=== PATIENT | male | born 1955 | race African-American/Black ===

== ENCOUNTER 2016-08-26 07:41 | Inpatient (IN) | payer OTHER ==
[~2016-08-26] VITALS: Ht 182.9 cm; Wt 195.0 kg
[~2016-08-26 07:41] MED LIST: DILT360C27 PO; FURO-151 PO; GLIP10TA10 PO; Hydralazine Hcl PO; LOSA50TA20 PO; LOSA50TA3 PO; METF10002 PO; METFORMIN PO; OMEP20CA10 PO; PULM50 HHN; Potassium Chloride PO; RIVA20TA PO; Tramadol Hcl PO
[2016-08-26 08:24] LABS: EOSINOPHILS % 1.4 % (0.0-5.0); HEMATOCRIT. 37.9 % (42.0-52.0); HEMOGLOBIN. 12.1 g/dL (14.0-18.0); LYMPHOCYTES % 10.8 % (20.0-50.0); MEAN CORPUSCULAR HEMOGLOBIN 28.5 pg (28.0-32.0); MEAN CORPUSCULAR HGB CONC 31.9 g/dL (31.0-37.0); MEAN CORPUSCULAR VOLUME 89.3 fL (80.0-94.0); MEAN PLATELET VOLUME 7.2 fl (7.4-10.4); MONOCYTES % 6.1 % (2.0-8.0); NEUTROPHILS % 80.7 % (40.0-76.0); PLATELET 218 x1000/uL (130-400); RED BLOOD CELL COUNT 4.25 mill/uL (4.7-6.1); RED CELL DISTRIBUTION WIDTH 15.6 % (11.6-14.6); WHITE BLOOD COUNT 9.6 x1000/uL (4.5-11.0)
[2016-08-26 08:33] LABS: INR 1.3
[2016-08-26 08:38] LABS: CALCIUM 8.1 mg/dL (8.5-10.1)
[2016-08-26 08:41] LABS: TROPONIN I 0.03 ng/mL (0.00-0.04)
[2016-08-26 09:09] LABS: *AMPHETAMINES SCREEN URINE NEGATIVE (NEGATIVE); *BARBITURATES SCREEN URINE NEGATIVE (NEGATIVE); *BENZODIAZEPINES SCREEN URINE NEGATIVE (NEGATIVE); *COCAINE SCREEN URINE PRESUMTIVE POSITIVE (NEGATIVE); CANNABINOID URINE SCREEN NEGATIVE (NEGATIVE); ECSTASY MDMA SCREEN URINE NEGATIVE (NEGATIVE); METHADONE URINE SCREEN NEGATIVE (NEGATIVE); OPIATES URINE SCREEN NEGATIVE (NEGATIVE); PHENCYCLIDINE URINE SCREEN NEGATIVE (NEGATIVE)
[2016-08-26] MEDS ORDERED: FUROSEMIDE 40MG/4ML VIAL IVP ONE (11:45)
[2016-08-26] MEDS ORDERED: ONDANSETRON HCL 4MG/2ML VIAL IV PRN (12:45)
[2016-08-26] MEDS ORDERED: CLONIDINE 0.1MG TABLET PO PRN (12:45)
[2016-08-26] MEDS ORDERED: MAGNESIUM/ALUMINUM HYDROXIDE/SIMETHICONE 30ML UDC PO PRN (12:45)
[2016-08-26] MEDS ORDERED: DOCUSATE SODIUM 100MG CAPSULE PO PRN (12:45)
[2016-08-26 13:09] LABS: CALCIUM 8.4 mg/dL (8.5-10.1); MAGNESIUM 1.8 mg/dL (1.8-2.4)
[2016-08-26 14:01] LABS: CLARITY URINE CLEAR (CLEAR); COLOR URINE YELLOW (YELLOW); GLUCOSE URINE NEGATIVE (NEGATIVE); KETONES URINE NEGATIVE (NEGATIVE); LEUKOCYTE ESTERASE URINE TRACE (NEGATIVE); NITRITE URINE NEGATIVE (NEGATIVE); OCCULT BLOOD URINE NEGATIVE (NEGATIVE); PH URINE 5.5 (4.5-8.0); PROTEIN URINE NEGATIVE (NEGATIVE); SPECIFIC GRAVITY URINE 1.007 (1.005-1.030); UROBILINOGEN URINE 0.2 E.U./dL (0.2-1.0)
[2016-08-26 14:31] LABS: WBC URINE 0-2 /hpf (0-2)
[2016-08-26 14:32] LABS: BACTERIA URINE TRACE; RBC URINE NONE SEEN /hpf (0-2); SQUAMOUS EPITHELIAL CELL URINE RARE /lpf (RARE/1+)
[2016-08-26 15:03] VITALS: BP 143/102
[2016-08-26] MEDS ORDERED: DILTIAZEM HCL 5MG/ML 5ML VIAL IV NR (15:45)
[2016-08-26 16:27] LABS: CREATINE KINASE MB FRACTION 0.5 ng/mL (0.5-3.6); TROPONIN I 0.03 ng/mL (0.00-0.04)
[2016-08-26 16:30] VITALS: BP 143/102
[2016-08-26] MEDS: MAGNESIUM OXIDE 400MG TABLET PO SCH (16:56)
[2016-08-26] MEDS: RIVAROXABAN 20 MG TABLET PO SCH (16:56)
[2016-08-26] MEDS: DILTIAZEM HCL 125 MG in DEXT 5% WATER 100 ML IV SCH (17:22)
[2016-08-26 18:00] VITALS: BP 145/98
[2016-08-26] MEDS: FUROSEMIDE 40MG/4ML VIAL IVP SCH (18:30)
[2016-08-26] MEDS ORDERED: DEXTROSE 50% WATER 50ML SYRINGE IV PRN (19:45)
[2016-08-26 20:34] VITALS: BP 145/81
[2016-08-26] MEDS: BLOOD SUGAR DIAGNOSTIC STRIP TEST SCH (20:50)
[2016-08-26] MEDS: INSULIN LISPRO 100 UNITS/ML SUBCUT SCH (21:16)
[2016-08-26 22:01] VITALS: BP 139/57
[2016-08-26 23:53] LABS: CREATINE KINASE 68 IU/L (39-308); CREATINE KINASE MB FRACTION < 0.5 ng/mL (0.5-3.6); INDEX HEMOLYSI 1 (1-3); TROPONIN I 0.02 ng/mL (0.00-0.04)
[2016-08-27] VITALS (12 sets, daily range): BP systolic 93–163; BP diastolic 35–98
[2016-08-27] MEDS: BUDESONIDE 0.5MG/2ML NEB HHN SCH ×3 (01:04→20:56)
[2016-08-27] MEDS: IPRATROPIUM/ALBUTEROL 0.5-3(2.5)MG/3ML NEB INH PRN ×3 (01:05→20:57)
[2016-08-27] MEDS: FUROSEMIDE 40MG/4ML VIAL IVP SCH ×2 (05:51→18:56)
[2016-08-27 06:41] LABS: BASOPHILS % 0.6 % (0.0-2.0); EOSINOPHILS % 2.4 % (0.0-5.0); HEMATOCRIT. 39.2 % (42.0-52.0); HEMOGLOBIN. 12.6 g/dL (14.0-18.0); LYMPHOCYTES % 16.3 % (20.0-50.0); MEAN CORPUSCULAR HEMOGLOBIN 28.7 pg (28.0-32.0); MEAN CORPUSCULAR HGB CONC 32.2 g/dL (31.0-37.0); MEAN CORPUSCULAR VOLUME 89.1 fL (80.0-94.0); MEAN PLATELET VOLUME 7.7 fl (7.4-10.4); MONOCYTES % 7.8 % (2.0-8.0); NEUTROPHILS % 72.9 % (40.0-76.0); PLATELET 242 x1000/uL (130-400); RED CELL DISTRIBUTION WIDTH 15.3 % (11.6-14.6); WHITE BLOOD COUNT 7.5 x1000/uL (4.5-11.0)
[2016-08-27 06:45] LABS: ANION GAP 12; CALCIUM 8.3 mg/dL (8.5-10.1); CARBON DIOXIDE 33 mEq/L (21-32); CHLORIDE 99 mEq/L (98-107); INDEX HEMOLYSI 1 (1-3); INDEX ICTERIC 1 (1-4); INDEX LIPEMIC 1 (1-3); LDL CHOLESTEROL 51 mg/dL (5-100); TRIGLYCERIDE 75 mg/dL (0-150); UREA NITROGEN BLOOD 15 mg/dL (7-21); eGFR > 60 mL/min (>60)
[2016-08-27 06:51] LABS: HDL CHOLESTEROL 27 mg/dL (40-59); THYROID STIMULATING HORMONE 0.79 uIU/mL (0.36-3.74); TROPONIN I 0.02 ng/mL (0.00-0.04)
[2016-08-27] MEDS: BLOOD SUGAR DIAGNOSTIC STRIP TEST SCH ×4 (07:11→21:00)
[2016-08-27] MEDS: INSULIN LISPRO 100 UNITS/ML SUBCUT SCH ×4 (07:20→22:01)
[2016-08-27] MEDS: MAGNESIUM OXIDE 400MG TABLET PO SCH (08:07)
[2016-08-27] MEDS ORDERED: POTASSIUM CHLORIDE 20MEQ TABLET SR PO NR (10:00)
[2016-08-27] MEDS: GUAIFENESIN 200MG/10ML SUGAR FREE UDC PO PRN ×3 (10:50→23:22)
[2016-08-27] MEDS ORDERED: DILTIAZEM HCL 5MG/ML 5ML VIAL IV NR (13:30)
[2016-08-27] MEDS: DILTIAZEM HCL 125 MG in DEXT 5% WATER 100 ML IV SCH (14:19)
[2016-08-27] MEDS: RIVAROXABAN 20 MG TABLET PO SCH (18:55)
[2016-08-27] MEDS: GLIPIZIDE 10MG TABLET PO SCH (18:55)
[2016-08-28] VITALS (18 sets, daily range): BP systolic 92–143; BP diastolic 43–87
[2016-08-28] MEDS: BLOOD SUGAR DIAGNOSTIC STRIP TEST SCH ×4 (06:41→20:52)
[2016-08-28] MEDS: GLIPIZIDE 10MG TABLET PO SCH ×2 (06:43→16:38)
[2016-08-28] MEDS: FUROSEMIDE 40MG/4ML VIAL IVP SCH ×2 (06:43→17:57)
[2016-08-28] MEDS: OMEPRAZOLE 20MG CAPSULE EXTENDED RELEASE PO SCH (06:43)
[2016-08-28] MEDS: INSULIN LISPRO 100 UNITS/ML SUBCUT SCH ×4 (06:44→21:07)
[2016-08-28] MEDS: GUAIFENESIN 200MG/10ML SUGAR FREE UDC PO PRN ×3 (08:26→20:20)
[2016-08-28] MEDS: LOSARTAN POTASSIUM 50 MG TABLET PO SCH (08:26)
[2016-08-28] MEDS: MAGNESIUM OXIDE 400MG TABLET PO SCH (08:27)
[2016-08-28] MEDS: ACETAMINOPHEN 325MG TABLET PO PRN ×2 (08:32→16:52)
[2016-08-28] MEDS: IPRATROPIUM/ALBUTEROL 0.5-3(2.5)MG/3ML NEB INH PRN ×3 (09:22→16:37)
[2016-08-28] MEDS: BUDESONIDE 0.5MG/2ML NEB HHN SCH ×2 (09:22→22:27)
[2016-08-28] MEDS: AMIODARONE HCL 200 MG TABLET PO SCH ×2 (12:53→21:06)
[2016-08-28] MEDS: DILTIAZEM HCL 125 MG in DEXT 5% WATER 100 ML IV SCH (16:37)
[2016-08-28] MEDS: RIVAROXABAN 20 MG TABLET PO SCH (16:52)
[2016-08-28] MEDS: GUAIFENESIN 600MG ER TABLET PO SCH (20:19)
[2016-08-29] VITALS (15 sets, daily range): BP systolic 103–141; BP diastolic 52–85
[2016-08-29] MEDS: GUAIFENESIN 200MG/10ML SUGAR FREE UDC PO PRN ×3 (02:06→23:09)
[2016-08-29] MEDS: DILTIAZEM HCL 125 MG in DEXT 5% WATER 100 ML IV SCH ×3 (02:07→17:26)
[2016-08-29] MEDS: GLIPIZIDE 10MG TABLET PO SCH ×2 (05:54→16:29)
[2016-08-29] MEDS: FUROSEMIDE 40MG/4ML VIAL IVP SCH ×2 (05:54→17:27)
[2016-08-29] MEDS: AMIODARONE HCL 200 MG TABLET PO SCH ×3 (05:54→21:54)
[2016-08-29] MEDS: OMEPRAZOLE 20MG CAPSULE EXTENDED RELEASE PO SCH (05:54)
[2016-08-29] MEDS: BLOOD SUGAR DIAGNOSTIC STRIP TEST SCH ×4 (05:55→21:56)
[2016-08-29] MEDS: INSULIN LISPRO 100 UNITS/ML SUBCUT SCH ×4 (06:03→22:00)
[2016-08-29] MEDS: ACETAMINOPHEN 325MG TABLET PO PRN ×2 (07:42→21:53)
[2016-08-29] MEDS: BUDESONIDE 0.5MG/2ML NEB HHN SCH ×2 (08:25→21:03)
[2016-08-29] MEDS: MAGNESIUM OXIDE 400MG TABLET PO SCH (08:27)
[2016-08-29] MEDS: LOSARTAN POTASSIUM 50 MG TABLET PO SCH (08:27)
[2016-08-29] MEDS: GUAIFENESIN 600MG ER TABLET PO SCH ×2 (08:27→21:53)
[2016-08-29 08:51] LABS: BASOPHILS % 0.6 % (0.0-2.0); EOSINOPHILS % 5.3 % (0.0-5.0); HEMATOCRIT. 42.4 % (42.0-52.0); HEMOGLOBIN. 13.8 g/dL (14.0-18.0); LYMPHOCYTES % 16.6 % (20.0-50.0); MEAN CORPUSCULAR HEMOGLOBIN 28.4 pg (28.0-32.0); MEAN CORPUSCULAR HGB CONC 32.6 g/dL (31.0-37.0); MEAN CORPUSCULAR VOLUME 87.3 fL (80.0-94.0); MEAN PLATELET VOLUME 7.3 fl (7.4-10.4); MONOCYTES % 13.6 % (2.0-8.0); NEUTROPHILS % 63.9 % (40.0-76.0); PLATELET 251 x1000/uL (130-400); RED BLOOD CELL COUNT 4.86 mill/uL (4.7-6.1); RED CELL DISTRIBUTION WIDTH 15.5 % (11.6-14.6)
[2016-08-29 09:38] LABS: CALCIUM 8.3 mg/dL (8.5-10.1)
[2016-08-29] MEDS ORDERED: LEVAQUIN XX SCH (15:15)
[2016-08-29] MEDS ORDERED: AZITHROMYCIN 500 MG in DEXT 5% WATER 250 ML IV SCH (16:00)
[2016-08-29] MEDS: RIVAROXABAN 20 MG TABLET PO SCH (16:40)
[2016-08-29] MEDS ORDERED: LEVOFLOXACIN 750MG PREMIX 150 ML IV SCH (17:00)
[2016-08-29] MEDS: INSULIN DETEMIR UD 100 UNITS/ML SYR SUBCUT SCH (22:00)
[2016-08-30 00:12] VITALS: BP 105/68
[2016-08-30 02:03] VITALS: BP 109/73
[2016-08-30] MEDS: GUAIFENESIN 200MG/10ML SUGAR FREE UDC PO PRN ×2 (03:00→08:45)
[2016-08-30] MEDS: DILTIAZEM HCL 125 MG in DEXT 5% WATER 100 ML IV SCH ×2 (03:16→09:43)
[2016-08-30 04:33] VITALS: BP 152/56
[2016-08-30 05:39] VITALS: BP 99/34
[2016-08-30] MEDS: BLOOD SUGAR DIAGNOSTIC STRIP TEST SCH (06:35)
[2016-08-30] MEDS: GLIPIZIDE 10MG TABLET PO SCH (06:43)
[2016-08-30] MEDS: FUROSEMIDE 40MG/4ML VIAL IVP SCH (06:43)
[2016-08-30] MEDS: AMIODARONE HCL 200 MG TABLET PO SCH (06:43)
[2016-08-30] MEDS: INSULIN LISPRO 100 UNITS/ML SUBCUT SCH (07:31)
[2016-08-30 07:35] VITALS: BP 136/86
[2016-08-30 07:38] LABS: BASOPHILS % 0.6 % (0.0-2.0); EOSINOPHILS % 3.5 % (0.0-5.0); HEMATOCRIT. 41.9 % (42.0-52.0); HEMOGLOBIN. 13.3 g/dL (14.0-18.0); LYMPHOCYTES % 13.4 % (20.0-50.0); MEAN CORPUSCULAR HEMOGLOBIN 28.3 pg (28.0-32.0); MEAN CORPUSCULAR HGB CONC 31.8 g/dL (31.0-37.0); MEAN CORPUSCULAR VOLUME 88.9 fL (80.0-94.0); MEAN PLATELET VOLUME 7.3 fl (7.4-10.4); MONOCYTES % 12.1 % (2.0-8.0); NEUTROPHILS % 70.4 % (40.0-76.0); PLATELET 247 x1000/uL (130-400); RED BLOOD CELL COUNT 4.71 mill/uL (4.7-6.1); RED CELL DISTRIBUTION WIDTH 15.8 % (11.6-14.6); WHITE BLOOD COUNT 7.4 x1000/uL (4.5-11.0)
[2016-08-30 07:50] LABS: CALCIUM 7.7 mg/dL (8.5-10.1)
[2016-08-30] MEDS: IPRATROPIUM/ALBUTEROL 0.5-3(2.5)MG/3ML NEB INH PRN (08:09)
[2016-08-30] MEDS: BUDESONIDE 0.5MG/2ML NEB HHN SCH (08:09)
[2016-08-30] MEDS: GUAIFENESIN 600MG ER TABLET PO SCH (08:34)
[2016-08-30] MEDS: MAGNESIUM OXIDE 400MG TABLET PO SCH (08:34)
[2016-08-30] MEDS: LOSARTAN POTASSIUM 50 MG TABLET PO SCH (08:34)
[2016-08-30] MEDS ORDERED: FAMOTIDINE 20MG TABLET PO SCH (09:00)
[2016-08-30] MEDS: INSULIN DETEMIR UD 100 UNITS/ML SYR SUBCUT SCH (10:00)
== END 2016-08-30 09:40 | disposition left against medical advice (07) | DRG 682 ==
LOC: ER 07:44 → 3WST 10:00
PROVIDERS: ADMIT Internal Medicine; ATTEND Internal Medicine
DX: N17.9 Acute kidney failure, unspecified (principal); J96.22 Acute and chronic respiratory failure with hypercapnia; J96.21 Acute and chronic respiratory failure with hypoxia; I50.33 Acute on chronic diastolic (congestive) heart failure; I13.0 Hypertensive heart and chronic kidney disease with heart failure and stage 1 through stage 4 chronic kidney disease, or unspecified chronic kidney disease; J44.1 Chronic obstructive pulmonary disease with (acute) exacerbation; I48.4 Atypical atrial flutter; E46 Unspecified protein-calorie malnutrition; Z68.43 Body mass index [BMI] 50.0-59.9, adult; E66.2 Morbid (severe) obesity with alveolar hypoventilation; D64.9 Anemia, unspecified; E11.22 Type 2 diabetes mellitus with diabetic chronic kidney disease; N18.9 Chronic kidney disease, unspecified; I48.91 Unspecified atrial fibrillation; I27.2 Other secondary pulmonary hypertension; G47.33 Obstructive sleep apnea (adult) (pediatric); F14.10 Cocaine abuse, uncomplicated; E66.09 Other obesity due to excess calories; E11.21 Type 2 diabetes mellitus with diabetic nephropathy; Z53.21 Procedure and treatment not carried out due to patient leaving prior to being seen by health care provider; E87.6 Hypokalemia; I08.1 Rheumatic disorders of both mitral and tricuspid valves; Z79.01 Long term (current) use of anticoagulants; Z87.891 Personal history of nicotine dependence; Z88.0 Allergy status to penicillin; Z91.041 Radiographic dye allergy status; Z98.890 Other specified postprocedural states; Z79.4 Long term (current) use of insulin
CPT/HCPCS: 36415; 71010; 80048; 80061; 80305; 81001; 82550; 82553; 82962; 83735; 83880; 84443; 84484; 85025; 85610; 87070; 87077; 93005; 93970; 96374; 99285; C1893; J0456; J1815; J1940; J1956; J3490; J7040; J7050; J7060; J7620; J7626

== ENCOUNTER 2017-03-16 12:10 | Inpatient (IN) | payer OTHER ==
[~2017-03-16] VITALS: Ht 205.7 cm; Wt 200.0 kg
[2017-03-16] MEDS ORDERED: ALBUTEROL (0.083%) 2.5MG/3ML NEB HHN STA (12:15)
[2017-03-16] MEDS ORDERED: IPRATROPIUM BROMIDE (0.02%) 0.5MG/2.5ML NEB HHN STA (12:15)
[2017-03-16] MEDS ORDERED: FUROSEMIDE 40MG/4ML VIAL IVP ONE (12:15)
[2017-03-16 12:50] LABS: BASOPHILS % 0.8 % (0.0-2.0); EOSINOPHILS % 1.6 % (0.0-5.0); HEMATOCRIT. 42.6 % (42.0-52.0); MEAN CORPUSCULAR HEMOGLOBIN 29.8 pg (28.0-32.0); MEAN CORPUSCULAR VOLUME 90.5 fL (80.0-94.0); MEAN PLATELET VOLUME 7.8 fl (7.4-10.4); MONOCYTES % 5.8 % (2.0-8.0); NEUTROPHILS % 74.8 % (40.0-76.0); PLATELET 188 x1000/uL (130-400); RED BLOOD CELL COUNT 4.71 mill/uL (4.7-6.1); RED CELL DISTRIBUTION WIDTH 13.4 % (11.6-14.6)
[2017-03-16 12:56] LABS: INR 1.1; PARTIAL THROMBOPLASTIN TIME 29.2 sec (23.4-31.0); PROTHROMBIN TIME 11.8 sec (9.4-11.6)
[2017-03-16 12:59] LABS: CARBON DIOXIDE 29 mEq/L (21-32); CHLORIDE 100 mEq/L (98-107)
[2017-03-16] MEDS ORDERED: NITROGLYCERIN OINT 1GM/INCH UDPKT TD ONE (13:00)
[2017-03-16 13:04] LABS: TROPONIN I < 0.02 ng/mL (0.00-0.04)
[2017-03-16] MEDS ORDERED: LEVOFLOXACIN 750MG PREMIX 150 ML IV ONE (13:15)
[2017-03-16] MEDS ORDERED: DILTIAZEM HCL 5MG/ML 5ML VIAL IV PRN (13:45)
[2017-03-16] MEDS ORDERED: IPRATROPIUM BROMIDE (0.02%) 0.5MG/2.5ML NEB HHN PRN (15:00)
[2017-03-16] MEDS ORDERED: POTASSIUM CHLORIDE 20MEQ TABLET SR PO ONE (15:45)
[2017-03-16] MEDS ORDERED: DILTIAZEM HCL 125 MG in DEXT 5% WATER 100 ML IV PRN (16:00)
[2017-03-16] MEDS: DILTIAZEM HCL 125 MG in DEXT 5% WATER 100 ML IV PRN (16:18)
[2017-03-16 16:32] LABS: BG BASE EXCESS 5.4 mmol/L (-2.0-2.0); BG CARBOXYHEMOGLOBIN 1.1 % (0.5-1.5); BG DEOXYHEMOGLOBIN 11.3 % (0.0-5.0); BG FRACTION INSPIRED OXYGEN 32; BG HCO3 ACT 29.7 mmol/L (22.0-26.0); BG METHEMOGLOBIN 0.4 % (0.0-1.5); BG OXYGEN SATURATION 88.5 % (92.0-98.5); BG OXYHEMOGLOBIN 87.2 % (94.0-97.0); BG PCO2 41.8 mmHg (35.0-45.0); BG PH 7.469 (7.350-7.450); BG PO2 52.2 mmHg (75.0-100.0); BG SAMPLE SITE RIGHT RADIAL; BG TOTAL HEMOGLOBIN 14.8 g/dL (12.0-18.0); BG VENT MODE NASAL CANNULA
[2017-03-16] MEDS ORDERED: ZOLPIDEM TARTRATE 5MG TABLET PO PRN (21:00)
[2017-03-16] MEDS: POTASSIUM CHLORIDE 20MEQ TABLET SR PO SCH (21:03)
[2017-03-16] MEDS: FUROSEMIDE 100MG/10ML VIAL IVP SCH (21:03)
[2017-03-16] MEDS: RIVAROXABAN 20 MG TABLET PO SCH (21:04)
[2017-03-16] MEDS: METHYLPREDNISOLONE SOD SUCC 125 MG/2 ML VIAL IV SCH (21:07)
[2017-03-16] MEDS: IPRATROPIUM BROMIDE (0.02%) 0.5MG/2.5ML NEB HHN SCH (21:11)
[2017-03-16] MEDS: BUDESONIDE 0.5MG/2ML NEB HHN SCH (21:11)
[2017-03-16] MEDS ORDERED: CLONIDINE 0.1MG TABLET PO PRN (21:15)
[2017-03-16] MEDS ORDERED: ACETAMINOPHEN 325MG TABLET PO PRN (21:15)
[2017-03-16] MEDS ORDERED: ONDANSETRON HCL 4MG/2ML VIAL IV PRN (21:15)
[2017-03-16] MEDS ORDERED: DOCUSATE SODIUM 100MG CAPSULE PO PRN (21:15)
[2017-03-16] MEDS ORDERED: MAGNESIUM/ALUMINUM HYDROXIDE/SIMETHICONE 30ML UDC PO PRN (21:15)
[2017-03-16] MEDS ORDERED: ENOXAPARIN 40MG/0.4ML SYR SUBCUT SCH (21:15)
[2017-03-16 22:00] VITALS: BP 150/75
[2017-03-16] MEDS: DILTIAZEM HCL 60MG TABLET PO SCH (23:07)
[2017-03-16] MEDS: HYDRALAZINE HCL 25MG TABLET PO SCH (23:08)
[2017-03-17] VITALS (34 sets, daily range): BP systolic 70–162; BP diastolic 41–89
[2017-03-17 00:19] LABS: CLARITY URINE CLEAR (CLEAR); COLOR URINE YELLOW (YELLOW); GLUCOSE URINE NEGATIVE (NEGATIVE); KETONES URINE NEGATIVE (NEGATIVE); LEUKOCYTE ESTERASE URINE TRACE (NEGATIVE); NITRITE URINE NEGATIVE (NEGATIVE); OCCULT BLOOD URINE NEGATIVE (NEGATIVE); PH URINE 5.5 (4.5-8.0); PROTEIN URINE NEGATIVE (NEGATIVE)
[2017-03-17 00:50] LABS: *AMPHETAMINES SCREEN URINE NEGATIVE (NEGATIVE); *BARBITURATES SCREEN URINE NEGATIVE (NEGATIVE); *BENZODIAZEPINES SCREEN URINE NEGATIVE (NEGATIVE); *COCAINE SCREEN URINE PRESUMTIVE POSITIVE (NEGATIVE); CANNABINOID URINE SCREEN NEGATIVE (NEGATIVE); METHADONE URINE SCREEN NEGATIVE (NEGATIVE); OPIATES URINE SCREEN NEGATIVE (NEGATIVE); PHENCYCLIDINE URINE SCREEN NEGATIVE (NEGATIVE)
[2017-03-17] MEDS: IPRATROPIUM BROMIDE (0.02%) 0.5MG/2.5ML NEB HHN SCH ×6 (01:06→20:21)
[2017-03-17] MEDS: METHYLPREDNISOLONE SOD SUCC 125 MG/2 ML VIAL IV SCH ×3 (06:09→21:45)
[2017-03-17] MEDS: DILTIAZEM HCL 60MG TABLET PO SCH ×3 (06:10→21:48)
[2017-03-17] MEDS: HYDRALAZINE HCL 25MG TABLET PO SCH ×3 (06:10→21:46)
[2017-03-17 06:51] LABS: HEMATOCRIT. 41.7 % (42.0-52.0); HEMOGLOBIN. 13.9 g/dL (14.0-18.0); MEAN CORPUSCULAR HEMOGLOBIN 29.9 pg (28.0-32.0); MEAN CORPUSCULAR VOLUME 89.5 fL (80.0-94.0); PLATELET 186 x1000/uL (130-400); RED BLOOD CELL COUNT 4.66 mill/uL (4.7-6.1); RED CELL DISTRIBUTION WIDTH 13.3 % (11.6-14.6)
[2017-03-17 07:41] LABS: CHLORIDE 97 mEq/L (98-107)
[2017-03-17 07:50] LABS: CARBON DIOXIDE 31 mEq/L (21-32); TROPONIN I < 0.02 ng/mL (0.00-0.04)
[2017-03-17] MEDS: BUDESONIDE 0.5MG/2ML NEB HHN SCH ×2 (08:20→20:21)
[2017-03-17] MEDS: OMEPRAZOLE 20MG CAPSULE EXTENDED RELEASE PO SCH (08:43)
[2017-03-17] MEDS: LOSARTAN POTASSIUM 50 MG TABLET PO SCH (08:43)
[2017-03-17] MEDS: POTASSIUM CHLORIDE 20MEQ TABLET SR PO SCH (08:43)
[2017-03-17] MEDS: FUROSEMIDE 100MG/10ML VIAL IVP SCH ×2 (08:43→17:07)
[2017-03-17] MEDS ORDERED: PANTOPRAZOLE SODIUM 40 MG/VIAL IV SCH (09:00)
[2017-03-17] MEDS ORDERED: MAGNESIUM 2 G PREMIX 50 ML IV ONE (10:15)
[2017-03-17] MEDS ORDERED: MAGNESIUM 2 G PREMIX 50 ML IV NR ×2 (11:00→13:00)
[2017-03-17] MEDS ORDERED: DEXTROSE 50% WATER 50ML SYRINGE IV PRN (11:15)
[2017-03-17] MEDS ORDERED: INSULIN DETEMIR UD 100 UNITS/ML SYR SUBCUT SCH (12:00)
[2017-03-17] MEDS: BLOOD SUGAR DIAGNOSTIC STRIP TEST SCH ×3 (12:45→21:45)
[2017-03-17] MEDS: INSULIN LISPRO 100 UNITS/ML SUBCUT SCH ×3 (13:07→21:45)
[2017-03-17] MEDS: DILTIAZEM HCL 125 MG in DEXT 5% WATER 100 ML IV PRN (13:35)
[2017-03-17] MEDS: RIVAROXABAN 20 MG TABLET PO SCH (17:07)
[2017-03-17 18:06] LABS: PLATELET ESTIMATE NORMAL
[2017-03-18] VITALS (17 sets, daily range): BP systolic 109–179; BP diastolic 59–128
[2017-03-18] MEDS: IPRATROPIUM BROMIDE (0.02%) 0.5MG/2.5ML NEB HHN SCH ×6 (00:52→20:03)
[2017-03-18] MEDS: METHYLPREDNISOLONE SOD SUCC 125 MG/2 ML VIAL IV SCH ×3 (05:54→21:00)
[2017-03-18] MEDS: DILTIAZEM HCL 60MG TABLET PO SCH ×4 (05:54→23:09)
[2017-03-18] MEDS: HYDRALAZINE HCL 25MG TABLET PO SCH ×3 (05:54→22:00)
[2017-03-18 06:33] LABS: HEMATOCRIT. 44.8 % (42.0-52.0); HEMOGLOBIN. 14.6 g/dL (14.0-18.0); MEAN CORPUSCULAR HEMOGLOBIN 29.4 pg (28.0-32.0); MEAN CORPUSCULAR VOLUME 90.2 fL (80.0-94.0); MEAN PLATELET VOLUME 8.2 fl (7.4-10.4); PLATELET 209 x1000/uL (130-400); RED BLOOD CELL COUNT 4.97 mill/uL (4.7-6.1); RED CELL DISTRIBUTION WIDTH 13.5 % (11.6-14.6)
[2017-03-18] MEDS: DILTIAZEM HCL 125 MG in DEXT 5% WATER 100 ML IV PRN (06:33)
[2017-03-18 07:38] LABS: CARBON DIOXIDE 29 mEq/L (21-32); CHLORIDE 94 mEq/L (98-107)
[2017-03-18] MEDS: BLOOD SUGAR DIAGNOSTIC STRIP TEST SCH ×4 (08:11→21:00)
[2017-03-18] MEDS: POTASSIUM CHLORIDE 20MEQ TABLET SR PO SCH (08:27)
[2017-03-18] MEDS: LOSARTAN POTASSIUM 50 MG TABLET PO SCH (08:27)
[2017-03-18] MEDS: FUROSEMIDE 100MG/10ML VIAL IVP SCH (08:31)
[2017-03-18] MEDS: INSULIN LISPRO 100 UNITS/ML SUBCUT SCH ×4 (08:33→21:00)
[2017-03-18] MEDS ORDERED: MAGNESIUM 1 G PREMIX 100 ML IV SCH (09:00)
[2017-03-18] MEDS: OMEPRAZOLE 20MG CAPSULE EXTENDED RELEASE PO SCH (09:08)
[2017-03-18] MEDS: BUDESONIDE 0.5MG/2ML NEB HHN SCH ×2 (09:42→20:03)
[2017-03-18] MEDS ORDERED: INSULIN DETEMIR UD 100 UNITS/ML SYR SUBCUT SCH (10:00)
[2017-03-18] MEDS ORDERED: DIGOXIN 500MCG/2ML AMP IV SCH (11:30)
[2017-03-18] MEDS ORDERED: LIDOCAINE HCL 1% 20ML VIAL (Pyxis) INJ ONE ×2 (13:57→14:54)
[2017-03-18] MEDS ORDERED: DEXTROSE 50% WATER 50ML SYRINGE IV PRN (15:00)
[2017-03-18 15:51] LABS: PLATELET ESTIMATE NORMAL
[2017-03-18] MEDS ORDERED: INSULIN REGULAR (HUMULIN R) UD 100 UNITS/ML SYR SUBCUT NR (16:30)
[2017-03-18] MEDS: RIVAROXABAN 20 MG TABLET PO SCH (17:03)
[2017-03-18] MEDS ORDERED: BLOOD SUGAR DIAGNOSTIC STRIP TEST SCH (17:30)
[2017-03-18] MEDS: INSULIN DETEMIR UD 100 UNITS/ML SYR SUBCUT SCH (22:00)
[2017-03-19] VITALS (9 sets, daily range): BP systolic 125–164; BP diastolic 64–88
[2017-03-19] MEDS: IPRATROPIUM BROMIDE (0.02%) 0.5MG/2.5ML NEB HHN SCH ×5 (00:05→20:37)
[2017-03-19] MEDS: BLOOD SUGAR DIAGNOSTIC STRIP TEST SCH ×4 (07:30→21:27)
[2017-03-19] MEDS: POTASSIUM CHLORIDE 20MEQ TABLET SR PO SCH (09:30)
[2017-03-19] MEDS: LOSARTAN POTASSIUM 50 MG TABLET PO SCH (09:30)
[2017-03-19] MEDS: OMEPRAZOLE 20MG CAPSULE EXTENDED RELEASE PO SCH (09:30)
[2017-03-19] MEDS: METHYLPREDNISOLONE SOD SUCC 125 MG/2 ML VIAL IV SCH (09:30)
[2017-03-19] MEDS: INSULIN LISPRO 100 UNITS/ML SUBCUT SCH ×7 (09:32→21:29)
[2017-03-19] MEDS ORDERED: DIGOXIN 500MCG/2ML AMP IV NR ×3 (11:30→23:30)
[2017-03-19] MEDS: BUDESONIDE 0.5MG/2ML NEB HHN SCH ×2 (11:37→20:37)
[2017-03-19] MEDS: INSULIN DETEMIR UD 100 UNITS/ML SYR SUBCUT SCH ×2 (11:51→21:29)
[2017-03-19] MEDS ORDERED: FUROSEMIDE 40MG/4ML VIAL IVP SCH (12:00)
[2017-03-19] MEDS: DILTIAZEM HCL 60MG TABLET PO SCH ×2 (13:18→17:48)
[2017-03-19] MEDS: HYDRALAZINE HCL 25MG TABLET PO SCH ×2 (13:27→21:26)
[2017-03-19] MEDS ORDERED: DEXTROSE 50% WATER 50ML SYRINGE IV PRN (14:30)
[2017-03-19 15:28] LABS: CARBON DIOXIDE 27 mEq/L (21-32); CHLORIDE 97 mEq/L (98-107)
[2017-03-19 15:29] LABS: HEMATOCRIT 43.5 % (42.0-52.0); HEMOGLOBIN 14.4 g/dL (14.0-18.0); MEAN CORPUSCULAR VOLUME 91.1 fL (80.0-94.0); PLATELET 193 x1000/uL (130-400); RED BLOOD CELL COUNT 4.78 mill/uL (4.7-6.1); RED CELL DISTRIBUTION WIDTH 13.3 % (11.6-14.6)
[2017-03-19] MEDS ORDERED: PREDNISONE 20MG TABLET PO SCH (17:00)
[2017-03-19] MEDS: RIVAROXABAN 20 MG TABLET PO SCH (17:47)
[2017-03-20] VITALS: BP 170/93
[2017-03-20] MEDS: DILTIAZEM HCL 60MG TABLET PO SCH (00:22)
[2017-03-20] MEDS: IPRATROPIUM BROMIDE (0.02%) 0.5MG/2.5ML NEB HHN SCH (00:35)
[2017-03-20] MEDS ORDERED: DIGOXIN 125MCG TABLET PO SCH (18:00)
== END 2017-03-20 05:35 | disposition short-term general hospital (02) | DRG 291 ==
LOC: EDBEDREQ 13:14 → EDBEDREQTM 13:14 → ER 14:03 → 5EST 16:00 → ENRESERV 16:39 → CANBEDREQ 19:37 → SUPCPDRO 19:55
PROVIDERS: ADMIT Family Medicine Adult Medicine; ATTEND Family Medicine Adult Medicine
PROC: 02HV33Z Insertion of Infusion Device into Superior Vena Cava, Percutaneous Approach (ICD-10-PCS; principal; 2017-03-18)
PROC: B548ZZA Ultrasonography of Superior Vena Cava, Guidance (ICD-10-PCS; 2017-03-18)
DX: I11.0 Hypertensive heart disease with heart failure (principal); J96.21 Acute and chronic respiratory failure with hypoxia; J44.1 Chronic obstructive pulmonary disease with (acute) exacerbation; I48.92 Unspecified atrial flutter; Z68.42 Body mass index [BMI] 45.0-49.9, adult; I50.33 Acute on chronic diastolic (congestive) heart failure; E66.01 Morbid (severe) obesity due to excess calories; E11.9 Type 2 diabetes mellitus without complications; E83.42 Hypomagnesemia; E87.6 Hypokalemia; G47.33 Obstructive sleep apnea (adult) (pediatric); I48.2 Chronic atrial fibrillation; Z53.20 Procedure and treatment not carried out because of patient's decision for unspecified reasons; Z87.11 Personal history of peptic ulcer disease; Z91.19 Patient's noncompliance with other medical treatment and regimen; Z88.0 Allergy status to penicillin; Z88.8 Allergy status to other drugs, medicaments and biological substances; Z79.899 Other long term (current) drug therapy; Z82.49 Family history of ischemic heart disease and other diseases of the circulatory system
CPT/HCPCS: 36415; 36569; 36600; 71010; 76937; 80048; 80053; 80305; 81001; 82375; 82805; 82962; 83605; 83690; 83735; 83880; 84443; 84484; 85025; 85027; 85610; 85730; 87040; 87086; 93005; 93306; 93970; 94640; 94660; 96365; 96366; 96375; 99291; C1725; J1160; J1815; J1940; J1956; J2930; J3475; J3490; J7050; J7060; J7512; J7611; J7626

== ENCOUNTER 2018-07-21 18:06 | Emergency (ER) | payer OTHER ==
[~2018-07-21] VITALS: Ht 185.4 cm; Wt 204.0 kg
[~2018-07-21 18:06] MED LIST changes: +METF-416 PO; -METF10002 PO
[2018-07-21] MEDS ORDERED: HYDROCODONE/ACETAMINOPHEN 5/325MG TABLET PO ONE (22:45)
[2018-07-22 01:52] VITALS: BP 161/74
== END 2018-07-22 01:55 | disposition home or self-care (01) ==
LOC: ER 18:06
DX: S16.1XXA Strain of muscle, fascia and tendon at neck level, initial encounter (principal); S63.592A Other specified sprain of left wrist, initial encounter; M25.562 Pain in left knee; I48.91 Unspecified atrial fibrillation; I11.0 Hypertensive heart disease with heart failure; I50.9 Heart failure, unspecified; J44.9 Chronic obstructive pulmonary disease, unspecified; E11.9 Type 2 diabetes mellitus without complications; V49.59XA Passenger injured in collision with other motor vehicles in traffic accident, initial encounter; Y93.89 Activity, other specified; Y92.89 Other specified places as the place of occurrence of the external cause; Y99.8 Other external cause status; Z88.0 Allergy status to penicillin; Z91.041 Radiographic dye allergy status; Z79.899 Other long term (current) drug therapy
CPT/HCPCS: 29125; 71045; 72040; 73110; 73562; 99283

== ENCOUNTER 2018-09-06 15:07 | Inpatient (IN) | payer OTHER ==
[~2018-09-06] VITALS: Ht 182.9 cm; Wt 184.6 kg
[2018-09-06] VITALS (9 sets, daily range): BP systolic 132–152; BP diastolic 74–102
[2018-09-06 16:29] LABS: CHLORIDE 105 mEq/L (98-107)
[2018-09-06 16:31] LABS: INR 1.2; PARTIAL THROMBOPLASTIN TIME 34.3 sec (23.4-31.0); PROTHROMBIN TIME 11.9 sec (9.6-11.0)
[2018-09-06 16:34] LABS: BASOPHILS % 0.5 % (0.0-2.0); EOSINOPHILS % 0.7 % (0.0-5.0); HEMATOCRIT. 41.6 % (42.0-52.0); HEMOGLOBIN. 13.5 g/dL (14.0-18.0); LYMPHOCYTES % 11.9 % (20.0-50.0); MEAN CORPUSCULAR HEMOGLOBIN 28.7 pg (28.0-32.0); MEAN CORPUSCULAR VOLUME 88.7 fL (80.0-94.0); MEAN PLATELET VOLUME 8.1 fl (7.4-10.4); MONOCYTES % 6.1 % (2.0-8.0); NEUTROPHILS % 80.8 % (40.0-76.0); PLATELET 275 x1000/uL (130-400); RED BLOOD CELL COUNT 4.69 mill/uL (4.7-6.1); RED CELL DISTRIBUTION WIDTH 14.1 % (11.6-14.6)
[2018-09-06] MEDS ORDERED: DILTIAZEM HCL 125 MG in DEXT 5% WATER 100 ML IV ONE (17:15)
[2018-09-06] MEDS ORDERED: DILTIAZEM HCL 5MG/ML 5ML VIAL IV NR (17:15)
[2018-09-06] MEDS ORDERED: DILTIAZEM HCL 125MG in DEXTROSE 5% WATER 125ML IV NR (18:15)
[2018-09-06] MEDS ORDERED: ACETAMINOPHEN 650MG/20.3ML UDC GT PRN (18:30)
[2018-09-06] MEDS ORDERED: MAGNESIUM/ALUMINUM HYDROXIDE/SIMETHICONE 30ML UDC PO PRN (18:30)
[2018-09-06] MEDS ORDERED: ENOXAPARIN 40MG/0.4ML SYR SUBCUT SCH (18:30)
[2018-09-06] MEDS ORDERED: ACETAMINOPHEN 325MG TABLET PO PRN (18:30)
[2018-09-06] MEDS ORDERED: DIPHENHYDRAMINE 50MG/ML VIAL IV PRN (18:30)
[2018-09-06] MEDS ORDERED: GUAIFENESIN 200MG/10ML SUGAR FREE UDC PO PRN (18:30)
[2018-09-06] MEDS ORDERED: ACETAMINOPHEN 650MG SUPP PR PRN (18:30)
[2018-09-06] MEDS ORDERED: ONDANSETRON HCL 4MG/2ML INJ IV PRN (18:30)
[2018-09-06] MEDS ORDERED: DOCUSATE SODIUM 100MG CAPSULE PO PRN (18:30)
[2018-09-06] MEDS ORDERED: NA PHOS,M-B/NA PHOS,DI-BA ENEMA 118ML PR PRN (18:30)
[2018-09-06] MEDS ORDERED: DEXTROSE 50% WATER 50ML SYRINGE IV PRN (18:30)
[2018-09-06] MEDS ORDERED: CLONIDINE 0.1MG TABLET PO PRN (18:30)
[2018-09-06] MEDS ORDERED: DILTIAZEM HCL 125 MG in DEXT 5% WATER 100 ML IV SCH (18:30)
[2018-09-06 18:33] LABS: CLARITY URINE CLEAR (CLEAR); COLOR URINE DARK YELLOW (YELLOW); KETONES URINE NEGATIVE (NEGATIVE); LEUKOCYTE ESTERASE URINE TRACE (NEGATIVE); NITRITE URINE NEGATIVE (NEGATIVE); OCCULT BLOOD URINE NEGATIVE (NEGATIVE); PH URINE 5.5 (4.5-8.0); PROTEIN URINE 2+ (NEGATIVE); SPECIFIC GRAVITY URINE 1.026 (1.005-1.030)
[2018-09-06 18:44] LABS: *AMPHETAMINES SCREEN URINE NEGATIVE (NEGATIVE)
[2018-09-06 18:45] LABS: *BARBITURATES SCREEN URINE NEGATIVE (NEGATIVE); *BENZODIAZEPINES SCREEN URINE NEGATIVE (NEGATIVE); *COCAINE SCREEN URINE PRESUMTIVE POSITIVE (NEGATIVE); METHADONE URINE SCREEN NEGATIVE (NEGATIVE); OPIATES URINE SCREEN NEGATIVE (NEGATIVE); PHENCYCLIDINE URINE SCREEN NEGATIVE (NEGATIVE)
[2018-09-06 18:46] LABS: CANNABINOID URINE SCREEN NEGATIVE (NEGATIVE)
[2018-09-06] MEDS: BLOOD SUGAR DIAGNOSTIC STRIP TEST SCH (21:45)
[2018-09-06] MEDS ORDERED: DILTIAZEM HCL 125 MG in DEXT 5% WATER 100 ML IV PRN (22:00)
[2018-09-06] MEDS: SODIUM CHLORIDE 0.9% INJ 3ML FLUSH IVF SCH (22:00)
[2018-09-06] MEDS: HYDROCODONE/ACETAMINOPHEN 5/325MG TABLET PO PRN (22:23)
[2018-09-06] MEDS: INSULIN LISPRO 100 UNITS/ML SUBCUT SCH (23:25)
[2018-09-06 23:54] LABS: CREATINE KINASE 97 IU/L (39-308)
[2018-09-06 23:55] LABS: CREATINE KINASE MB FRACTION 1.4 ng/mL (0.5-3.6)
[2018-09-06] MEDS: SODIUM CHLORIDE 0.45% 1,000 ML IV SCH (23:57)
[2018-09-07] VITALS (71 sets, daily range): BP systolic 73–178; BP diastolic 43–127
[2018-09-07] MEDS: HYDROCODONE/ACETAMINOPHEN 5/325MG TABLET PO PRN ×2 (06:03→23:24)
[2018-09-07] MEDS: SODIUM CHLORIDE 0.9% INJ 3ML FLUSH IVF SCH ×3 (06:15→21:44)
[2018-09-07 06:27] LABS: BASOPHILS % 0.6 % (0.0-2.0); EOSINOPHILS % 2.7 % (0.0-5.0); HEMATOCRIT. 39.4 % (42.0-52.0); HEMOGLOBIN. 12.9 g/dL (14.0-18.0); LYMPHOCYTES % 23.2 % (20.0-50.0); MEAN CORPUSCULAR HEMOGLOBIN 29.3 pg (28.0-32.0); MEAN CORPUSCULAR VOLUME 89.4 fL (80.0-94.0); MEAN PLATELET VOLUME 7.9 fl (7.4-10.4); MONOCYTES % 7.1 % (2.0-8.0); NEUTROPHILS % 66.4 % (40.0-76.0); PLATELET 247 x1000/uL (130-400); RED CELL DISTRIBUTION WIDTH 14.1 % (11.6-14.6)
[2018-09-07 06:52] LABS: CHLORIDE 104 mEq/L (98-107)
[2018-09-07 07:01] LABS: CREATINE KINASE MB FRACTION 1.2 ng/mL (0.5-3.6)
[2018-09-07 07:03] LABS: LDL CHOLESTEROL 61 mg/dL (5-100)
[2018-09-07 07:04] LABS: CREATINE KINASE 99 IU/L (39-308)
[2018-09-07 07:05] LABS: HDL CHOLESTEROL 29 mg/dL (40-59)
[2018-09-07 07:07] LABS: T4 FREE 1.49 ng/dL (0.76-1.46)
[2018-09-07] MEDS: BLOOD SUGAR DIAGNOSTIC STRIP TEST SCH ×4 (07:50→21:43)
[2018-09-07] MEDS ORDERED: ENOXAPARIN 30MG/0.3ML SYR SUBCUT SCH (09:00)
[2018-09-07] MEDS: INSULIN LISPRO 100 UNITS/ML SUBCUT SCH ×4 (09:34→21:00)
[2018-09-07] MEDS ORDERED: MEDICATION NOT ON FORMULARY EA (Diltiazem Hcl (Cardizem Cd) 1 CAP) PO SCH (11:15)
[2018-09-07] MEDS: OMEPRAZOLE 20MG CAPSULE EXTENDED RELEASE PO SCH (12:21)
[2018-09-07] MEDS: DILTIAZEM HCL 180MG CAPSULE CD 24HR PO SCH (12:21)
[2018-09-07] MEDS: GLIPIZIDE 5MG TABLET PO SCH ×2 (12:21→17:42)
[2018-09-07] MEDS: SODIUM CHLORIDE 0.45% 1,000 ML IV SCH (12:22)
[2018-09-07] MEDS: RIVAROXABAN 20 MG TABLET PO SCH (17:42)
[2018-09-07] MEDS: AMIODARONE HCL 200 MG TABLET PO SCH ×2 (17:42→23:24)
[2018-09-07] MEDS ORDERED: MEDICATION NOT ON FORMULARY EA (Rivaroxaban (Xarelto) 20 MG) PO SCH (18:20)
[2018-09-08] MEDS: IPRATROPIUM/ALBUTEROL 0.5-3(2.5)MG/3ML NEB INH PRN ×2 (00:32→08:02)
[2018-09-08] MEDS: BUDESONIDE 0.5MG/2ML NEB HHN SCH ×2 (00:32→08:01)
[2018-09-08] MEDS: SODIUM CHLORIDE 0.45% 1,000 ML IV SCH (03:36)
[2018-09-08 04:00] VITALS: BP 133/59
[2018-09-08] MEDS: AMIODARONE HCL 200 MG TABLET PO SCH ×2 (05:24→12:33)
[2018-09-08] MEDS: SODIUM CHLORIDE 0.9% INJ 3ML FLUSH IVF SCH (05:25)
[2018-09-08] MEDS: BLOOD SUGAR DIAGNOSTIC STRIP TEST SCH ×2 (06:46→12:34)
[2018-09-08] MEDS: INSULIN LISPRO 100 UNITS/ML SUBCUT SCH ×2 (07:30→12:34)
[2018-09-08 08:00] VITALS: BP 157/101
[2018-09-08] MEDS: DILTIAZEM HCL 180MG CAPSULE CD 24HR PO SCH (09:22)
[2018-09-08] MEDS: OMEPRAZOLE 20MG CAPSULE EXTENDED RELEASE PO SCH (09:22)
[2018-09-08] MEDS: GLIPIZIDE 5MG TABLET PO SCH ×2 (09:22→16:40)
[2018-09-08 12:00] VITALS: BP 138/89
[2018-09-08 13:56] VITALS: BP 138/85
[2018-09-08 15:16] LABS: BASOPHILS % 0.7 % (0.0-2.0); EOSINOPHILS % 2.4 % (0.0-5.0); HEMATOCRIT. 40.7 % (42.0-52.0); HEMOGLOBIN. 13.4 g/dL (14.0-18.0); LYMPHOCYTES % 20.1 % (20.0-50.0); MEAN CORPUSCULAR HEMOGLOBIN 29.1 pg (28.0-32.0); MEAN CORPUSCULAR VOLUME 88.2 fL (80.0-94.0); MEAN PLATELET VOLUME 8.1 fl (7.4-10.4); MONOCYTES % 5.9 % (2.0-8.0); NEUTROPHILS % 70.9 % (40.0-76.0); PLATELET 279 x1000/uL (130-400); RED BLOOD CELL COUNT 4.61 mill/uL (4.7-6.1); RED CELL DISTRIBUTION WIDTH 13.9 % (11.6-14.6)
[2018-09-08 15:22] LABS: CHLORIDE 103 mEq/L (98-107)
[2018-09-08] MEDS: RIVAROXABAN 20 MG TABLET PO SCH (16:40)
== END 2018-09-08 18:30 | disposition home or self-care (01) | DRG 194 ==
LOC: ER 15:07 → CVICU 18:06 → ENRESERV 20:37 → 7WST 09-07 22:51
PROVIDERS: ADMIT Family Medicine; ATTEND Family Medicine
DX: I11.0 Hypertensive heart disease with heart failure (principal); E66.01 Morbid (severe) obesity due to excess calories; I48.92 Unspecified atrial flutter; I50.9 Heart failure, unspecified; Z68.43 Body mass index [BMI] 50.0-59.9, adult; I48.2 Chronic atrial fibrillation; E11.9 Type 2 diabetes mellitus without complications; F14.90 Cocaine use, unspecified, uncomplicated; G47.30 Sleep apnea, unspecified; J44.9 Chronic obstructive pulmonary disease, unspecified; E78.5 Hyperlipidemia, unspecified; H91.90 Unspecified hearing loss, unspecified ear; K59.00 Constipation, unspecified; M17.11 Unilateral primary osteoarthritis, right knee; N40.1 Benign prostatic hyperplasia with lower urinary tract symptoms; Z87.11 Personal history of peptic ulcer disease; Z87.891 Personal history of nicotine dependence; Z88.9 Allergy status to unspecified drugs, medicaments and biological substances; R63.4 Abnormal weight loss; Z91.013 Allergy to seafood
CPT/HCPCS: 36415; 71045; 80061; 80305; 82550; 82553; 82962; 83036; 84439; 84443; 84484; 86850; 86900; 93005; 93306; 96374; 99291; J1650; J1815; J3490; J7060; J7620; J7626